=== PATIENT | male | born 1940 | race Caucasian/White ===

== ENCOUNTER 2021-09-15 12:45 | Inpatient (IN) | payer MEDICARE, OTHER ==
[~2021-09-15] VITALS: Ht 182.9 cm; Wt 90.7 kg
[~2021-09-15 12:45] MED LIST: BACTRIM DS TAB1 EACH PO; HYZAAR 100-12.1 EACH PO; LIPITOR20 MG PO; TENORMIN25 MG PO
[2021-09-15] MEDS ORDERED: METOPROLOL TARTRATE INJ 1 MG/ML VIAL IV ONE (13:00)
[2021-09-15 13:16] LABS: BASOPHILS # (AUTO) 0.1 (0.0-0.1); BASOPHILS % 1.3 % (0.0-1.0); EOSINOPHILS # (AUTO) 0.4 (0.0-0.4); EOSINOPHILS % 4.3 % (0.0-6.0); HEMATOCRIT 45.6 % (38.2-49.6); HEMOGLOBIN 14.8 g/dL (14.0-18.0); LYMPHOCYTES # (AUTO) 2.2 (1.0-3.2); LYMPHOCYTES % 23.6 % (18.0-39.1); MEAN CORPUSCULAR HEMOGLOBIN 29.1 pg (28-32); MEAN CORPUSCULAR HGB CONC 32.5 g/dL (31-35); MEAN CORPUSCULAR VOLUME 89.6 fL (81-99); MONOCYTES # (AUTO) 0.7 (0.2-0.8); MONOCYTES % 7.8 % (4.4-11.3); NEUTROPHILS # (AUTO) 5.9 (2.1-6.9); NEUTROPHILS % 62.8 % (38.7-80.0); PLATELET COUNT 143 x10e3/uL (140-360); RED BLOOD COUNT 5.09 x10e6/uL (4.3-5.7); RED CELL DISTRIBUTION WIDTH 13.7 % (11.7-14.4)
[2021-09-15 13:30] LABS: ALBUMIN 3.7 g/dL (3.5-5.0); ANION GAP 11.7 mmol/L (8-16); CALCIUM 8.8 mg/dL (8.4-10.2); CREATININE, SERUM 1.07 mg/dL (0.72-1.25); POTASSIUM 3.7 mmol/L (3.5-5.1)
[2021-09-15 13:42] LABS: INR 0.88; PARTIAL THROMBOPLASTIN TIME 28.7 seconds (23.8-35.5); PROTHROMBIN TIME 12.8 seconds (11.9-14.5)
[2021-09-15] MEDS ORDERED: ONDANSETRON HCL INJ 2MG/ML 2ML 2 MG/ML VIAL IV PRN (15:45)
[2021-09-15] MEDS ORDERED: SODIUM CHLORIDE FLUSH 10 ML SYR INJ PRN (15:45)
[2021-09-15] MEDS ORDERED: AMIODARONE HCL 150 MG/100 ML BAG IV ONE (16:45)
[2021-09-15] MEDS ORDERED: AMIODARONE HCL 100 ML IV ONE (17:00)
[2021-09-15] MEDS ORDERED: AMIODARONE 900MG 500 ML IV SCH (17:15)
[2021-09-15] MEDS: APIXABAN 5 MG TABLET PO SCH (18:12)
[2021-09-15 19:46] LABS: CREATINE KINASE MB 1.1 ng/mL (0-5.0)
[2021-09-15] MEDS: AMIODARONE 900MG 500 ML IV SCH (23:16)
[2021-09-16] MEDS: AMIODARONE 900MG 500 ML IV SCH
[2021-09-16] MEDS: ATORVASTATIN 20 MG TAB PO SCH ×2 (00:11)
[2021-09-16] MEDS ORDERED: LOSARTAN POTASSIUM 25 MG TAB ONE (06:46)
[2021-09-16] MEDS ORDERED: LOSARTAN POTASSIUM 25 MG TAB PO SCH (07:00)
[2021-09-16 07:50] LABS: BASOPHILS # (AUTO) 0.1 (0.0-0.1); BASOPHILS % 1.1 % (0.0-1.0); EOSINOPHILS # (AUTO) 0.5 (0.0-0.4); EOSINOPHILS % 5.2 % (0.0-6.0); HEMATOCRIT 42.8 % (38.2-49.6); HEMOGLOBIN 14.4 g/dL (14.0-18.0); LYMPHOCYTES # (AUTO) 2.1 (1.0-3.2); LYMPHOCYTES % 20.2 % (18.0-39.1); MEAN CORPUSCULAR HEMOGLOBIN 29.6 pg (28-32); MEAN CORPUSCULAR HGB CONC 33.6 g/dL (31-35); MEAN CORPUSCULAR VOLUME 87.9 fL (81-99); MONOCYTES # (AUTO) 0.8 (0.2-0.8); MONOCYTES % 7.4 % (4.4-11.3); NEUTROPHILS # (AUTO) 6.8 (2.1-6.9); NEUTROPHILS % 65.6 % (38.7-80.0); PLATELET COUNT 133 x10e3/uL (140-360); RED BLOOD COUNT 4.87 x10e6/uL (4.3-5.7); RED CELL DISTRIBUTION WIDTH 13.6 % (11.7-14.4)
[2021-09-16] MEDS: HYDRALAZINE HCL 20 MG/ML VIAL IV PRN ×2 (07:58→15:37)
[2021-09-16 08:00] LABS: ANION GAP 12.5 mmol/L (8-16); CALCIUM 8.8 mg/dL (8.4-10.2); CREATININE, SERUM 1.03 mg/dL (0.72-1.25); POTASSIUM 3.5 mmol/L (3.5-5.1)
[2021-09-16] MEDS ORDERED: LOSARTAN POTASSIUM 100 MG TAB PO SCH (09:00)
[2021-09-16] MEDS: APIXABAN 5 MG TABLET PO SCH ×2 (09:00→17:19)
[2021-09-16] MEDS ORDERED: METOPROLOL TARTRATE 25 MG TAB PO SCH (09:15)
[2021-09-16] MEDS ORDERED: HYDROCODONE/APAP 5MG-325MG TAB PO PRN (09:15)
[2021-09-16] MEDS ORDERED: METOPROLOL TARTRATE INJ 1 MG/ML VIAL IV PRN (09:15)
[2021-09-16] MEDS ORDERED: ACETAMINOPHEN 325 MG TAB PO PRN (09:15)
[2021-09-16] MEDS: VALSARTAN 160 MG TAB PO SCH (09:25)
[2021-09-16] MEDS: AMIODARONE HCL 200 MG TAB PO SCH (09:25)
[2021-09-16] MEDS: TRIAMTERENE/HCTZ 37.5-25 MG TAB PO SCH (09:30)
[2021-09-16] MEDS: METOPROLOL TARTRATE 25 MG TAB PO SCH ×3 (09:35→22:00)
[2021-09-16] MEDS ORDERED: ASPIRIN 325 MG TAB ONE (09:45)
[2021-09-16] MEDS: ASPIRIN 325 MG TAB EC PO SCH (09:59)
[2021-09-16] MEDS ORDERED: HYDRALAZINE HCL 20 MG/ML VIAL ONE (15:49)
[2021-09-16] MEDS: SENNA-S TABLET PO SCH (17:20)
[2021-09-16 17:57] VITALS: BP 156/76
[2021-09-16] MEDS ORDERED: MONTELUKAST SOD10 MG PO (18:23)
[2021-09-16] MEDS ORDERED: FLONASE SENSIM5.9 ML (18:23)
[2021-09-16] MEDS ORDERED: METOPROLOL SUCC25 MG PO (18:23)
[2021-09-16] MEDS ORDERED: ZETIA10 MG PO (18:23)
[2021-09-16] MEDS ORDERED: LOSARTAN POTASS25 MG PO (18:23)
[2021-09-16] MEDS ORDERED: ASPIRIN81 MG PO (18:23)
[2021-09-16] MEDS ORDERED: FLOMAX0.4 MG PO (18:23)
[2021-09-16] MEDS ORDERED: LEVOCETIRIZINE D5 MG PO (18:23)
[2021-09-16] MEDS ORDERED: CRESTOR10 MG PO (18:23)
[2021-09-16 19:18] VITALS: BP 156/76
[2021-09-16 20:00] VITALS: BP 147/97
[2021-09-17] VITALS: BP 189/82
[2021-09-17 04:00] VITALS: BP 142/97
[2021-09-17] MEDS: METOPROLOL TARTRATE 25 MG TAB PO SCH ×2 (04:00→09:20)
[2021-09-17 07:44] LABS: BASOPHILS # (AUTO) 0.1 (0.0-0.1); BASOPHILS % 0.7 % (0.0-1.0); EOSINOPHILS # (AUTO) 0.3 (0.0-0.4); EOSINOPHILS % 2.4 % (0.0-6.0); HEMATOCRIT 43.8 % (38.2-49.6); HEMOGLOBIN 14.4 g/dL (14.0-18.0); LYMPHOCYTES # (AUTO) 2.6 (1.0-3.2); LYMPHOCYTES % 19.4 % (18.0-39.1); MEAN CORPUSCULAR HEMOGLOBIN 29.1 pg (28-32); MEAN CORPUSCULAR HGB CONC 32.9 g/dL (31-35); MEAN CORPUSCULAR VOLUME 88.7 fL (81-99); MONOCYTES # (AUTO) 0.9 (0.2-0.8); MONOCYTES % 6.7 % (4.4-11.3); NEUTROPHILS # (AUTO) 9.6 (2.1-6.9); NEUTROPHILS % 70.5 % (38.7-80.0); PLATELET COUNT 151 x10e3/uL (140-360); RED BLOOD COUNT 4.94 x10e6/uL (4.3-5.7); RED CELL DISTRIBUTION WIDTH 13.9 % (11.7-14.4)
[2021-09-17 08:00] VITALS: BP 142/97
[2021-09-17 08:15] LABS: ALBUMIN 3.6 g/dL (3.5-5.0); ANION GAP 15.5 mmol/L (8-16); CALCIUM 8.9 mg/dL (8.4-10.2); CREATININE, SERUM 1.16 mg/dL (0.72-1.25); POTASSIUM 3.5 mmol/L (3.5-5.1)
[2021-09-17 08:41] VITALS: BP 173/90
[2021-09-17] MEDS: VALSARTAN 160 MG TAB PO SCH (09:21)
[2021-09-17] MEDS: ASPIRIN 325 MG TAB EC PO SCH (09:22)
[2021-09-17] MEDS: TRIAMTERENE/HCTZ 37.5-25 MG TAB PO SCH (09:22)
[2021-09-17] MEDS: APIXABAN 5 MG TABLET PO SCH (09:22)
[2021-09-17] MEDS: AMIODARONE HCL 200 MG TAB PO SCH (09:22)
[2021-09-17] MEDS: SENNA-S TABLET PO SCH (09:22)
[2021-09-17] MEDS ORDERED: POTASSIUM CHLORIDE 20 MEQ TAB CR PO ONE (09:30)
[2021-09-17] MEDS ORDERED: ONDANSETRON HCL 4 MG ORAL DISINTEGRATING TAB PO PRN (11:15)
[2021-09-17 12:26] VITALS: BP 165/94
[2021-09-17] MEDS ORDERED: METOPROLOL SUCC50 MG PO (13:31)
[2021-09-17] MEDS ORDERED: AMIODARONE HCL200 MG PO (13:32)
[2021-09-17] MEDS ORDERED: ELIQUIS5 MG PO (13:34)
== END 2021-09-17 15:50 | disposition home or self-care (01) | DRG 310 ==
LOC: ER 12:51 → ERHOLD 15:40 → MED/SURG2 09-16 16:50
PROVIDERS: ADMIT Internal Medicine; ATTEND Internal Medicine
DX: I48.91 Unspecified atrial fibrillation (principal); I25.10 Atherosclerotic heart disease of native coronary artery without angina pectoris; Z95.2 Presence of prosthetic heart valve; E78.5 Hyperlipidemia, unspecified; I10 Essential (primary) hypertension; N40.0 Benign prostatic hyperplasia without lower urinary tract symptoms; I16.0 Hypertensive urgency; Z82.49 Family history of ischemic heart disease and other diseases of the circulatory system; Z91.040 Latex allergy status; Z88.5 Allergy status to narcotic agent; Z88.8 Allergy status to other drugs, medicaments and biological substances; Z91.048 Other nonmedicinal substance allergy status; Z20.822 Contact with and (suspected) exposure to COVID-19
CPT/HCPCS: 0223U; 36415; 51700; 71045; 80048; 80053; 82550; 82553; 83880; 84484; 85025; 85610; 85730; 93005; 93306; 99284; J0360